=== PATIENT | female | born 1990 | race Hispanic/Latino ===

== ENCOUNTER 2020-05-20 16:48 | Inpatient (IN) | payer OTHER ==
[~2020-05-20 16:48] MED LIST: Lidocaine 2% PF 5 ML VIAL ONE
[2020-05-20] MEDS: Lactated Ringer's 1,000 ML IV SCH ×2 (17:19→22:15)
[2020-05-20] MEDS ORDERED: Diphenoxylate HCl/Atropine Tablet PO PRN ×2 (17:22)
[2020-05-20] MEDS ORDERED: Promethazine HCl 25 MG/ML VIAL IM PRN (17:22)
[2020-05-20] MEDS ORDERED: Misoprostol 200 MCG TAB PR PRN (17:22)
[2020-05-20] MEDS ORDERED: Butorphanol Tartrate 1 MG/ML VIAL SLOW IVP PRN (17:22)
[2020-05-20] MEDS ORDERED: Docusate 100 MG CAP PO PRN (17:22)
[2020-05-20] MEDS ORDERED: Ibuprofen 800 MG TAB PO PRN (17:22)
[2020-05-20] MEDS ORDERED: Acetaminophen 500 MG TAB PO PRN (17:22)
[2020-05-20] MEDS ORDERED: Ondansetron PF 4 MG/2 ML Vial IVP PRN (17:22)
[2020-05-20] MEDS ORDERED: Carboprost 250 MCG/ML AMP IM PRN (17:22)
[2020-05-20] MEDS ORDERED: Lidocaine 1% (PF) 30 ML VIAL SC PRN (17:22)
[2020-05-20] MEDS ORDERED: Zolpidem Tartrate 5 MG TAB PO PRN (17:22)
[2020-05-20] MEDS ORDERED: hydrALAZINE 20 MG/ML VIAL SLOW IVP PRN (17:22)
[2020-05-20] MEDS ORDERED: HYDROcodone/Acetaminophen 5/325 mg Tablet PO PRN ×2 (17:22)
--- NOTE | 2020-05-20 17:28 | PDOC.LDHP ---
Labor and Delivery H&P HPI: 29 y/o at 39 and 3/7 weeks presents for medical induction of labor. BPP was 10/07 today. Patient noted decreased movement today to 1-2 movements per hour at home, as well as bloody vaginal discharge when she woke up at 600am. She denies recent intercourse. Current gestational age (weeks): 39 Due date: 05/24/20 Grav: 2 Para: 1 Current complications: other (COVID in Jan, 2020.) Abnormal US findings: Yes (10/07 BPP) Current medications: pre- vitamins Allergies/Adverse Reactions: Allergies Allergy/AdvReac Type Severity Reaction Status Date / Time topiramate [From Topamax] Allergy Hives Verified 09/18/19 22:41 Social history: none - Physical Exam Vital signs reviewed and normal: yes General: NAD Heart: RRR Lungs: CTAB Abdomen: gravid Extremeties: no edema FHT: category 1 - Vaginal Exam cm dilated: 2 Effacement: 50% Station: -2 - Assessment L&D Assessment: medically indicated induction
[2020-05-20] MEDS ORDERED: Misoprostol 100 MCG TAB VAG SCH (17:30)
[2020-05-20 17:35] VITALS: BMI 33.1
[2020-05-20 17:44] LABS: Hemoglobin 11.3 g/dL (12.0-16.0); Mean Corpuscular HGB CONC 33.3 g/dL (32.0-36.0); Mean Corpuscular Volume 90.2 fL (78.0-98.0); Mean Platelet Volume 9.5 fL (7.4-10.4); Platelet Count 184 thou/uL (130-400); RBC Distribution Width 12.5 % (11.5-14.5); Red Blood Cell (RBC) Count 3.77 mill/uL (4.20-5.40); White Blood Cell (WBC) Count 10.2 thou/uL (4.8-10.8)
[2020-05-20 18:31] LABS: Syphilis Antibody Nonreactive (Nonreactive); Syphilis Antibody Index 0.07 S/CO (<1.00 Non-Reactive)
[2020-05-20 18:32] LABS: HBSAg Index 0.25 S/CO (0-0.99); Hep B Surf Ag Non-Reactive S/CO (NonReactive)
[2020-05-21] MEDS ORDERED: Fentanyl 4 mcg/Bup 0.1% Cadd 100 ML ONE (00:55)
[2020-05-21] MEDS ORDERED: diphenhydrAMINE 50 MG/ML VIAL IVP PRN (01:41)
[2020-05-21] MEDS ORDERED: Ondansetron PF 4 MG/2 ML Vial IVP PRN ×2 (01:41→07:42)
[2020-05-21] MEDS ORDERED: Naloxone HCl 0.4 mg/ml Vial IVP PRN ×2 (01:41)
[2020-05-21] MEDS ORDERED: Lactated Ringer's 500 ML IV PRN (01:41)
[2020-05-21] MEDS ORDERED: Acetaminophen 325 MG TAB PO PRN (01:41)
[2020-05-21] MEDS ORDERED: ePHEDrine 50 MG/ML VIAL SLOW IVP PRN (01:41)
[2020-05-21] MEDS ORDERED: Promethazine HCl 25 MG/ML VIAL IM PRN ×2 (01:41→07:42)
[2020-05-21] MEDS ORDERED: Communication Order-Pharmacy FS SCH (01:45)
[2020-05-21] MEDS ORDERED: Fentanyl 4 mcg/Bupivacaine 0.1% Cassette 100 ML EPIDURAL SCH (01:45)
[2020-05-21] MEDS: Lactated Ringer's 1,000 ML IV SCH (02:29)
[2020-05-21] MEDS: NS w/ Oxytocin 30 units 500 ML IV SCH ×2 (05:05→06:24)
[2020-05-21] MEDS ORDERED: Varicella virus, LIVE 0.5 ML VIAL SC ONE (07:42)
[2020-05-21] MEDS ORDERED: Benzocaine-Menthol 82.5 ML CAN TOP PRN (07:42)
[2020-05-21] MEDS ORDERED: Milk Of Magnesia 30 ML UDCUP PO PRN (07:42)
[2020-05-21] MEDS ORDERED: Methylergonovine 0.2 MG/ML VIAL IM PRN (07:42)
[2020-05-21] MEDS ORDERED: NS w/ Oxytocin 30 units 500 ML IV SCH (07:42)
[2020-05-21] MEDS ORDERED: Measles/Mumps/Rubella 10 MCG/0.5 ML VIAL SC ONE (07:42)
[2020-05-21] MEDS ORDERED: hydrALAZINE 20 MG/ML VIAL SLOW IVP PRN (07:42)
[2020-05-21] MEDS ORDERED: Bisacodyl 10 MG SUPP PR PRN (07:42)
[2020-05-21] MEDS ORDERED: diphenhydrAMINE 25 MG CAP PO PRN (07:42)
[2020-05-21] MEDS ORDERED: Lanolin Ointment 7 GM TUBE TOP PRN (07:42)
[2020-05-21] MEDS ORDERED: Adacel (T-DAP) 0.5 ML SYRINGE IM ONE (07:42)
[2020-05-21] MEDS ORDERED: Zolpidem Tartrate 5 MG TAB PO PRN (07:42)
[2020-05-21] MEDS ORDERED: Preparation H Ointment 28 GM TUBE PR PRN (07:42)
[2020-05-21] MEDS ORDERED: HYDROcodone/Acetaminophen 5/325 mg Tablet PO PRN ×2 (07:42)
[2020-05-21] MEDS: Ibuprofen 800 MG TAB PO SCH ×3 (09:03→23:24)
[2020-05-21 12:50] LABS: SARS-CoV-2 PCR by NAA Not Detected (NotDetected)
[2020-05-21] MEDS: Ferrous Sulfate 325 MG TAB PO SCH ×2 (15:36→18:24)
[2020-05-21] MEDS: Prenatal Vitamin 1 TAB PO SCH (15:37)
[2020-05-21] MEDS: Docusate Calcium (SURFAK) 240 MG CAP PO SCH ×2 (15:37→21:22)
[2020-05-22 06:24] LABS: Mean Corpuscular HGB CONC 33.5 g/dL (32.0-36.0); Mean Corpuscular Hemoglobin 30.2 pg (27.0-31.0); Mean Corpuscular Volume 90.3 fL (78.0-98.0); Mean Platelet Volume 9.1 fL (7.4-10.4); Platelet Count 145 thou/uL (130-400); RBC Distribution Width 12.6 % (11.5-14.5); Red Blood Cell (RBC) Count 2.97 mill/uL (4.20-5.40); White Blood Cell (WBC) Count 13.9 thou/uL (4.8-10.8)
[2020-05-22 08:24] VITALS: BP 119/81; TEMP 98.3
[2020-05-22] MEDS: Ferrous Sulfate 325 MG TAB PO SCH (09:30)
[2020-05-22] MEDS: Prenatal Vitamin 1 TAB PO SCH (09:30)
[2020-05-22] MEDS: Docusate Calcium (SURFAK) 240 MG CAP PO SCH (09:30)
[2020-05-22] MEDS: Ibuprofen 800 MG TAB PO SCH (09:31)
--- NOTE | 2020-05-22 14:03 | PDOC.PP ---
Post Progress Note Post Day #: 1 PO intake tolerated: yes Flatus: yes Ambulation: yes Vital Signs (12 hours) Temp Pulse Resp BP Pulse Ox 05/22/20 08:23 98.3 F 82 20 119/81 98 05/22/20 05:03 98.2 F 83 18 106/73 98 Weight Weight 187 lb - Physical Examination General: NAD Cardiovascular: no m/r/g, RRR Respiratory: clear to auscultation bilaterally, non-labored breathing Abdominal: + bowel sounds, lochia, no distention, appropriately TTP Extremities: negative homans (B) Neurological: no gross focal deficits Psychiatric: A&Ox3, normal affect (DC to home) Result Diagrams: 05/22/20 05:52 Additional Labs: Post Labs Hep Bs Antigen Non-Reactive S/CO (NonReactive) 05/20/20 17:31 Blood Type B POSITIVE 05/20/20 17:31
--- NOTE | 2020-05-23 06:51 | DN ---
DATE OF PROCEDURE: 05/21/2020 TIME: 5:03 Central Standard Time. PREOPERATIVE DIAGNOSIS: Intrauterine at 39 weeks and 4 days, initially sent over to the hospital for a 6/8 biophysical profile, but the patient wound up being in early labor and did not require any medications and continued to dilate, make progress on her own. She underwent artificial rupture of membranes once completely dilated and then delivered over intact perineum. POSTOPERATIVE DIAGNOSIS: Intrauterine at 39 weeks and 4 days, initially sent over to the hospital for a 6/8 biophysical profile, but the patient wound up being in early labor and did not require any medications and continued to dilate, make progress on her own. She underwent artificial rupture of membranes once completely dilated and then delivered over intact perineum. PROCEDURE PERFORMED: Spontaneous vaginal delivery over first-degree laceration of the perineum. FINDINGS: Viable female infant weighing 3073 g or 6 pounds 12 ounces. Apgars 9 and 9. QUANTITATIVE BLOOD LOSS: 525 mL. PROCEDURE IN DETAIL: The patient presented to [facility] where she was admitted to the labor and delivery service. The patient underwent a normal and uneventful labor with normal cervical dilatation until she was found to be completely dilated. She was then allowed to push and was able to bring the baby down and delivered the baby in a vertex presentation without difficulties. Once the head delivered in occiput anterior position, the shoulders followed spontaneously along with the rest of the baby's body. Once out the baby's mouth and nose were bulb suctioned. The cord was clamped and cut and baby was handed to waiting attendants. Cord blood was collected. Gentle fundal massage was performed and the placenta delivered intact without problems. Hemostasis was assured. Quantitative blood loss was calculated. Inspection of the cervix, vaginal vault, and perineum did not reveal any lacerations needing suturing. Once again, hemostasis was within normal limits and the patient was allowed to recover in the labor and delivery room. Baby went to nursery. Job ID: [id number]
== END 2020-05-22 16:30 | disposition home or self-care (01) | DRG 807 ==
LOC: L&D 16:48 → 3SW 05-21 13:23
PROVIDERS: ADMIT Obstetrics & Gynecology; ATTEND Obstetrics & Gynecology
PROC: 10E0XZZ Delivery of Products of Conception, External Approach (ICD-10-PCS; principal; 2020-05-21)
PROC: 10907ZC Drainage of Amniotic Fluid, Therapeutic from Products of Conception, Via Natural or Artificial Opening (ICD-10-PCS; 2020-05-21)
PROC: 0HQ9XZZ Repair Perineum Skin, External Approach (ICD-10-PCS; 2020-05-21)
DX: O70.0 First degree perineal laceration during delivery (principal); Z37.0 Single live birth; Z3A.39 39 weeks gestation of pregnancy; Z86.16 Personal history of COVID-19; Z88.8 Allergy status to other drugs, medicaments and biological substances; Z20.822 Contact with and (suspected) exposure to COVID-19
CPT/HCPCS: 36415; 51702; 85027; 86780; 86850; 86900; 86901; 87340; 87635; J2001; J2590; U0003; U0005

== ENCOUNTER 2022-07-30 07:40 | Outpatient (CLI) | payer OTHER | END 2022-07-30 07:41 | disposition home or self-care (01) | LOC: SCSMRI 07:40 | PROVIDERS: ATTEND Psychiatry & Neurology Neurology | DX: G43.109 Migraine with aura, not intractable, without status migrainosus (principal) | CPT/HCPCS: 70553 ==

== ENCOUNTER 2022-08-16 11:53 | Outpatient (CLI) | payer OTHER | END 2022-08-16 11:54 | disposition home or self-care (01) | LOC: SCSMRI 11:53 | PROVIDERS: ATTEND Psychiatry & Neurology Neurology | DX: G43.709 Chronic migraine without aura, not intractable, without status migrainosus (principal) | CPT/HCPCS: 72156 ==